=== PATIENT | male | born 1975 | race Caucasian/White ===

== ENCOUNTER 2019-03-25 17:19 | Emergency (ER) | payer MEDICAID ==
[~2019-03-25] VITALS: Ht 182.9 cm; Wt 81.6 kg
[~2019-03-25 17:19] MED LIST: METH10TA2 PO; OXYC30TA2
[2019-03-25 17:45] VITALS: BP 100/52
--- NOTE | 2019-03-25 18:26 | NUR ---
Patient discharged to home in stable condition. Written and verbal after care instructions given. Patient verbalizes understanding of instruction AND RX. PT STATED THAT HE WAS HOMELESS AND LIVED IN HIS CAR. PT REC'D HOMELESS RESOURCE PACKAGE, FOOD, AND JUICE. PT AMBULATED OUT WITH A STEADY GAIT. VSS. NAD NOTED.
== END 2019-03-25 18:29 | disposition home or self-care (01) ==
LOC: ER 17:19
DX: L03.114 Cellulitis of left upper limb (principal); F17.210 Nicotine dependence, cigarettes, uncomplicated; Z59.0 Homelessness; Z79.899 Other long term (current) drug therapy

== ENCOUNTER 2019-04-19 17:35 | Emergency (ER) | payer MEDICAID ==
[~2019-04-19] VITALS: Ht 182.9 cm; Wt 81.6 kg
[2019-04-19 17:46] VITALS: BP 157/96
[2019-04-19] MEDS ORDERED: HYDROCODONE/APAP 5/325MG 1 EACH TABLET ONE (18:52)
[2019-04-19] MEDS ORDERED: IBUPROFEN 400 MG TABLET ONE (18:52)
[2019-04-19] MEDS ORDERED: IBUPROFEN 400 MG TABLET PO ONE (19:00)
[2019-04-19] MEDS ORDERED: HYDROCODONE/APAP 5/325MG 1 EACH TABLET PO ONE (19:00)
== END 2019-04-19 18:56 | disposition home or self-care (01) ==
LOC: ER 17:38
DX: K08.89 Other specified disorders of teeth and supporting structures (principal); F17.210 Nicotine dependence, cigarettes, uncomplicated; Z59.0 Homelessness

== ENCOUNTER 2021-05-25 07:52 | Emergency (ER) | payer MEDICAID ==
[~2021-05-25] VITALS: Ht 182.9 cm; Wt 90.7 kg
[2021-05-25 08:01] VITALS: BP 138/83
[2021-05-25] MEDS ORDERED: SULF1TAB48 PO (08:05)
--- NOTE | 2021-05-25 08:08 | NUR ---
Patient discharged to home in stable condition. Written and verbal after care instructions given. Patient verbalizes understanding of instruction.
== END 2021-05-25 08:08 | disposition home or self-care (01) ==
LOC: ER 07:55
DX: L03.114 Cellulitis of left upper limb (principal); F17.210 Nicotine dependence, cigarettes, uncomplicated; Z59.0 Homelessness

== ENCOUNTER 2022-04-08 06:00 | Emergency (ER) | payer MEDICAID ==
[~2022-04-08] VITALS: Ht 182.9 cm; Wt 90.7 kg
[~2022-04-08 06:00] MED LIST changes: +SULF1TAB48 PO
[2022-04-08 06:15] VITALS: BP 183/102
[2022-04-08] MEDS ORDERED: SULF1TAB48 PO (06:57)
[2022-04-08] MEDS ORDERED: CEPH500C2 PO (06:57)
== END 2022-04-08 07:02 | disposition home or self-care (01) ==
LOC: ER 06:04
DX: F17.200 Nicotine dependence, unspecified, uncomplicated (principal); Z59.00 Homelessness unspecified; Z79.899 Other long term (current) drug therapy; L02.414 Cutaneous abscess of left upper limb

== ENCOUNTER 2022-09-30 08:03 | Inpatient (IN) | payer MEDICAID ==
[~2022-09-30] VITALS: Ht 182.9 cm; Wt 86.2 kg
[~2022-09-30 08:03] MED LIST changes: +CEPH500C2 PO
--- NOTE | 2022-09-30 08:42 | NUR ---
GIS PROFESSOR AT BEDSIDE FOR XRAY
[2022-09-30 08:48] LABS: BASOPHILS % (AUTO) 0.4 % (0.0-2.0); EOSINOPHILS % (AUTO) 1.3 % (0.0-6.0); HEMATOCRIT 45 % (39-51); HEMOGLOBIN 13.8 g/dL (13.5-17.5); LYMPHOCYTES # (AUTO) 1.6 K/uL (0.8-4.8); LYMPHOCYTES % (AUTO) 13.8 % (20.0-44.0); MEAN CORPUSCULAR HGB CONC 31 g/dl (31.0-36.0); MEAN CORPUSCULAR VOLUME 75 fL (80-96); MONOCYTES # (AUTO) 0.3 K/uL (0.1-1.30); MONOCYTES % (AUTO) 2.5 % (2.0-12.0); NEUTROPHILS # (AUTO) 9.4 K/uL (1.8-8.9); PLATELET COUNT (AUTO) 292 K/uL (150-450); RED BLOOD CELL COUNT(AUTO) 5.98 MIL/uL (4.5-6.0); WHITE BLOOD COUNT (AUTO) 11.5 K/uL (4.3-11.0)
--- NOTE | 2022-09-30 09:00 | NUR ---
URINE SAMPLE COLLECTED AND SENT TO LAB
[2022-09-30 09:11] LABS: CREATINE KINASE, TOTAL 339 U/L (39-308)
[2022-09-30 09:14] LABS: ALANINE AMINOTRANSFERASE 31 U/L (12-78); ALBUMIN 3.7 g/dL (3.4-5.0); ALCOHOL, BLOOD < 3 mg/dL (0-0); ALKALINE PHOSPHATASE 83 U/L (46-116); ASPARTATE AMINOTRANSFERASE 52 U/L (15-37); BILIRUBIN,DIRECT 0.1 mg/dL (0.0-0.2); BILIRUBIN,TOTAL 0.4 mg/dL (0.2-1.0); CALCIUM, SERUM 8.9 mg/dL (8.5-10.1); CARBON DIOXIDE 20 mmol/L (21-32); CHLORIDE 102 mmol/L (98-107); CREATININE 1.8 mg/dL (0.6-1.3); GLUCOSE 187 mg/dL (74-106); POTASSIUM 3.1 mmol/L (3.5-5.1); SODIUM SERUM 138 mmol/L (136-145); TOTAL PROTEIN, SERUM 9.4 g/dL (6.4-8.2); UREA NITROGEN, BLOOD 22 mg/dL (7-18)
--- NOTE | 2022-09-30 09:25 | NUR ---
MOVE SHEET SUBMITTED.
[2022-09-30 09:34] LABS: ACETAMINOPHEN < 10 ug/ml (10-30)
--- NOTE | 2022-09-30 09:35 | NUR ---
COVID SWAB COLLECTED AND SENT TO LAB
[2022-09-30 09:42] LABS: BILIRUBIN,URINE NEGATIVE (NEGATIVE); COLOR,URINE YELLOW (YELLOW); LEUKOCYTE ESTERASE ,URINE NEGATIVE (NEGATIVE); NITRITE, URINE NEGATIVE (NEGATIVE); PROTEIN,URINE 2+ mg/dl (NEGATIVE); UGLUCOSE 2+ mg/dL (NEGATIVE); UROBILINOGEN,URINE 0.2 EU/dL (0.2)
[2022-09-30 09:47] LABS: BACTERIA,URINE Few /HPF (None Seen); SQUAMOUS EPITHELIAL CELL,UR Few /HPF (None Seen)
[2022-09-30] MEDS ORDERED: hydrALAZINE HCL IV 20 MG VIAL IV ONE (10:00)
[2022-09-30] MEDS ORDERED: CEFTRIAXONE 1GM BAG (ER ONLY) 1 GM/50 ML PIGGYBACK IV ONE (10:00)
[2022-09-30] MEDS ORDERED: ENOXAPARIN SODIUM 80 MG/0.8 ML DISP.SYRIN SQ ONE (10:00)
[2022-09-30] MEDS ORDERED: hydrALAZINE HCL IV 20 MG VIAL ONE (10:02)
[2022-09-30] MEDS ORDERED: ENOXAPARIN SODIUM 100 MG/ML DISP.SYRIN SQ ONE (10:03)
--- NOTE | 2022-09-30 10:41 | NUR ---
[facility] CALLED INSTRUCTOR DRAMATIC ARTS PAGED.
[2022-09-30] MEDS ORDERED: HYDR50TA4 PO (10:48)
[2022-09-30] MEDS ORDERED: AMLO-213 PO (10:48)
--- NOTE | 2022-09-30 11:43 | NUR ---
[facility] CALLED SIGN MAINTENANCE PAGED.
--- NOTE | 2022-09-30 11:45 | NUR ---
KAIA LEWIS CALLED FOR MIDLINE
--- NOTE | 2022-09-30 12:07 | NUR ---
MIDLINE NURSE AT BEDSIDE FOR MIDLINE INSERTION
--- NOTE | 2022-09-30 12:22 | NUR ---
BED 320
--- NOTE | 2022-09-30 12:40 | NUR ---
PT REPORT GIVEN TO JEFFREY GARCIA
--- NOTE | 2022-09-30 13:23 | NUR ---
PT TRANSFERRED TO 320-1 VIA [facility] ACLS PROTOCOL. WARM HAND OFF GIVEN TO RN ASSIGNED.
--- NOTE | 2022-09-30 13:23 | NUR ---
DR MAGAÑA AT BEDSIDE W/ PT
--- NOTE | 2022-09-30 14:00 | NUR ---
MANAGER ETHICS ADMITTING NOTES PATIENT ARRIVED TO UNIT FROM ER, CURRENTLY LAYING IN BED, A/O X 3, ABLE TO MAKE NEEDS KNOWN, TOLERATING WELL ON 2 LPM O2 VIA NASAL CANNULA. NO COMPLAINTS OF PAIN OR DISCOMFORT AT THIS TIME. SHANTEL MIDLINE # 18 SL AND L FA # 22 SL CLEAN, INTACT AND FLUSHING WELL. TELE MONITOR IN PLACE READING SR 82. SAFETY MEASURES IN PLACE: BED IN LOWEST LOCKED POSITION, SIDE RAILS UP X 2, CALL LIGHT WITHIN REACH. WILL CONTINUE TO MONITOR.
[2022-09-30] MEDS ORDERED: POTASSIUM CHLORIDE 20 MEQ TAB.PRT.SR PO SCH (14:30)
[2022-09-30] MEDS ORDERED: FUROSEMIDE 100 MG/10 ML VIAL IV ONE (15:30)
[2022-09-30] MEDS ORDERED: ACETAMINOPHEN 325 MG TABLET PO PRN (15:30)
[2022-09-30] MEDS ORDERED: ONDANSETRON HCL/PF 4 MG/2 ML VIAL IVP PRN (15:30)
[2022-09-30] MEDS ORDERED: Z GUARD REMEDY 4 OZ OINT TP PRN (15:30)
[2022-09-30] MEDS ORDERED: ENOXAPARIN SODIUM 40 MG/0.4 ML DISP.SYRIN SQ SCH (16:00)
--- NOTE | 2022-09-30 18:23 | NUR ---
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 MD MADE AWARE. PATIENT STATED HE RECEIVES METHADONE FOR PREVENTION OF WITHDRAWAL SYMPTOMS FROM THE FOLLOWING CLINIC: [facility] AT [address], [address], [place], [address] . THE IS CURRENTLY CLOSED AND OPENS AGAIN 10/01 AT 8:30 AM. CHIP SILO TENDER STATED FACILITY MUST BE CALLED AGAIN IN MORNING IN ORDER TO FAX METHADONE PRESCRIPTION TO HOSPITAL. WILL ENDORSE TO CATECHIST FOR APOORVA.
--- NOTE | 2022-09-30 19:00 | NUR ---
DIRECTOR OF STRATEGIC PARTNERSHIPS CLOSING NOTES PATIENT LAYING IN BED, A/O X 3, ABLE TO MAKE NEEDS KNOWN, TOLERATING WELL ON 2 LPM O2 VIA CANNULA. NO S/S PAIN OR DISCOMFORT AT THIS TIME. SHANTEL # 18 MIDLINE AND L FA # 22 SL CLEAN, INTACT, AND FLUSHING WELL. TELE MONITOR IN PLACE READING SR 82. SAFETY MEASURES IN PLACE: BED IN LOWEST LOCKED POSITION, SIDE RAILS UP X 2, CALL LIGHT WITHIN REACH. ALL NEEDS MET. WILL ENDORSE TO SEWER AND INSPECTOR FOR APOORVA.
[2022-09-30] MEDS ORDERED: LORAZEPAM ORAL SOLN 2 MG/ML ORAL.CONC PO PRN (19:30)
--- NOTE | 2022-09-30 19:45 | NUR ---
CAUSTIC STRENGTH INSPECTOR OPENING NOTE PATIENT SLEEPING IN BED, EASILY AWAKENED, PATIENT ALERT/ORIENTED X 2-3, PT LETHARGIC. PATIENT STABLE ON RA, NO S/S OF DISTRESS OR SOB NOTED, BREATHING EVEN AND UNLABORED, SPO2: 99%. PATIENT ON EXTERNAL RN HOUSE SUPERVISOR READING SINUS RHYTHM WITH ST DEPRESSION, HR: 76. IV ACCESS ON LFA #22G AND SHANTEL MIDLINE INTACT AND SALINE LOCKED. PATIENT DENIES PAIN OR DISCOMFORT AT THIS TIME. SAFETY MEASURES IN PLACE: CALL LIGHT WITHIN REACH, SIDE RAILS UP X 2, BED LOCKED IN LOWEST POSITION, HOB ELEVATED, BED ALARM ON. WILL CONTINUE TO MONITOR PATIENT
[2022-09-30 20:00] VITALS: BP 159/111
[2022-10-01] VITALS: BP 151/100
--- NOTE | 2022-10-01 01:00 | NUR ---
FIRE SPRINKLER APPARATUS INSPECTOR NOTE PATIENT'S BP 151/100, HR: 86. PATIENT HAS NO PRN BP MEDS. CONTACTED SUPERVISOR LEAD BURNING MD MARY DEGROOT, NO NEW ORDERS AT THIS TIME. WILL CONTINUE TO MONITOR
[2022-10-01 04:00] VITALS: BP 187/98
[2022-10-01] MEDS ORDERED: NITROGLYCERIN PACKET 1 GM PACKET TOP SCH (04:30)
--- NOTE | 2022-10-01 04:30 | NUR ---
HOUSEHOLD APPLIANCE MECHANIC NOTE PATIENT BP 187/98, HR: 77. NOTIFIED OUTBOARD MOTOR MECHANIC MD MARY DEGROOT WHO IS PRESENT ON UNIT, PUT IN ORDER FOR TOPICAL NITRO 1 GM. MEDICATION GIVEN ORDERED
[2022-10-01 04:44] VITALS: BP 187/98
--- NOTE | 2022-10-01 05:46 | NUR ---
BIKE ASSEMBLER NOTE PATIENT VERY ANXIOUS AND RESTLESS, STATES WITHDRAWAL SYMPTOMS ARE VERY BAD RIGHT NOW. PATIENT HAS ORDER FOR ATIVAN 2 MG ORAL SOLUTION HOWEVER THAT IS NOT AVAILABLE IN [facility]. CONTACTED BINDER TECHNICIAN MD MARY DEGROOT WHO PUT IN ORDER FOR MORPHINE 2 MG IV X 1 TIME. MEDICATION GIVEN
[2022-10-01] MEDS ORDERED: MORPHINE SULFATE INJ 2 MG/ML DISP.SYRIN IV ONE (06:00)
[2022-10-01 06:05] LABS: BASOPHILS % (AUTO) 0.4 % (0.0-2.0); EOSINOPHILS % (AUTO) 1.4 % (0.0-6.0); HEMATOCRIT 37 % (39-51); HEMOGLOBIN 12.1 g/dL (13.5-17.5); LYMPHOCYTES # (AUTO) 2.2 K/uL (0.8-4.8); LYMPHOCYTES % (AUTO) 21.4 % (20.0-44.0); MEAN CORPUSCULAR HGB CONC 32 g/dl (31.0-36.0); MEAN CORPUSCULAR VOLUME 73 fL (80-96); MONOCYTES # (AUTO) 0.7 K/uL (0.1-1.30); MONOCYTES % (AUTO) 6.6 % (2.0-12.0); NEUTROPHILS # (AUTO) 7.3 K/uL (1.8-8.9); NEUTROPHILS % (AUTO) 70.2 % (43.0-81.0); PLATELET COUNT (AUTO) 306 K/uL (150-450); RED BLOOD CELL COUNT(AUTO) 5.13 MIL/uL (4.5-6.0); WHITE BLOOD COUNT (AUTO) 10.4 K/uL (4.3-11.0)
--- NOTE | 2022-10-01 06:20 | NUR ---
SANITATION INSPECTOR CLOSING NOTE PATIENT SLEEPING IN BED, EASILY AWAKENED, PATIENT ALERT/ORIENTED X 2-3. PATIENT STABLE ON RA, NO S/S OF DISTRESS OR SOB NOTED, BREATHING EVEN AND UNLABORED. PATIENT ON EXTERNAL DRY CELL TESTER READING SINUS RHYTHM, HR: 81. IV ACCESS ON LFA #22G AND SHANTEL MIDLINE INTACT AND SALINE LOCKED. PATIENT WAS SLEEPING MOST OF SHIFT, MEDICATIONS GIVEN ORDERED, PT NEEDS MET THROUGHOUT SHIFT. PATIENT REFUSED LINEN CHANGE AND TO WEAR A HOSPITAL GOWN. PATIENT MORE CALM AND LESS ANXIOUS AFTER MORPHINE 2 MG IV. SAFETY MEASURES IN PLACE: CALL LIGHT WITHIN REACH, SIDE RAILS UP X 2, BED LOCKED IN LOWEST POSITION, HOB ELEVATED. WILL ENDORSE TO DAYSHIFT RN FOR CONTINUITY OF CARE
[2022-10-01 06:38] LABS: ALBUMIN 3.2 g/dL (3.4-5.0); BILIRUBIN,TOTAL 0.5 mg/dL (0.2-1.0); CALCIUM, SERUM 8.3 mg/dL (8.5-10.1); CREATININE 1.7 mg/dL (0.6-1.3); MAGNESIUM 2.3 mg/dL (1.8-2.4); PHOSPHORUS 4.2 mg/dL (2.5-4.9); POTASSIUM 3.6 mmol/L (3.5-5.1); THYROID STIMULATING HORMONE 0.695 uIU/mL (0.358-3.74); TOTAL PROTEIN, SERUM 8.1 g/dL (6.4-8.2)
[2022-10-01] MEDS ORDERED: PANTOPRAZOLE 40 MG TABLET.DR PO SCH (07:30)
[2022-10-01] MEDS ORDERED: METH10TA2 PO (07:53)
--- NOTE | 2022-10-01 08:01 | NUR ---
RN OPENING NOTE RECEIVED PATIENT IN BED, AO X 2-3. ABLE TO RESPONDS ALL PHYSICAL STIMULI. RESPIRATORY EVEN AND UNLABORED IN ROOM AIR. IN NO ACUTE DISTRESS OBSERVED. SKIN IS WARM TO TOUCH, KEEP CLEAN/DRY. KEPT ELEVATED HOB FOR ASPIRATION PRECAUTION/ENSURE AIRWAY, AND LOWEST BED POSITIONED. BED ALARM IS ON AT ALL THE TIME FOR SAFETY. CALL LIGHT WITHIN REACH, WILL CONTINUE TO MONITOR.
[2022-10-01] MEDS ORDERED: LORAZEPAM 1 MG TABLET PO PRN (08:30)
--- NOTE | 2022-10-01 08:30 | NUR ---
METAL MIXER/MAHAD RECON CALLED AND SPOKE WITH CHARLIE FROM [facility] ([facility] PER CHARLIE, PATIENT WAS LAST SEEN IN THE CLINIC BACK IN 2013. MOHSEN PAYNE MADE AWARE.
--- NOTE | 2022-10-01 08:30 | NUR ---
PATIENT [id number] SIGNED AMA AND LEFT FACILITY ESCORTED BY SECURITY X 2 PERSON. PATIENT IS UNDERSTANDING THE RISK AND CONSEQUENCES INVOLVED IN LEAVING THE HOSPITAL AT THIS TIME. REFUSED TAKE A VITAL SIGN IN THIS MORNING. REMOVED IV LINE BEFORE PATIENT LEAVE THE FACILITY, NOTIFIED. INCIDENT REPORT IS DONE.
[2022-10-01] MEDS ORDERED: ASPIRIN EC 81 MG TABLET.DR PO SCH (09:00)
[2022-10-01] MEDS ORDERED: HYDROCHLOROTHIAZIDE 25 MG TABLET PO SCH (09:00)
[2022-10-01] MEDS ORDERED: HYDROCHLOROTHIAZIDE 50 MG TABLET PO SCH (09:00)
[2022-10-01] MEDS ORDERED: AMLODIPINE BESYLATE 10 MG TABLET PO SCH (09:00)
[2022-10-01] MEDS ORDERED: ENOXAPARIN SODIUM 40 MG/0.4 ML DISP.SYRIN SQ SCH (10:00)
== END 2022-10-01 08:45 | disposition left against medical advice (07) | DRG 816 ==
LOC: ER 08:05 → TELE 13:45
PROVIDERS: ADMIT Nurse Practitioner Acute Care; ATTEND Nurse Practitioner Acute Care
PROC: 05H933Z Insertion of Infusion Device into Right Brachial Vein, Percutaneous Approach (ICD-10-PCS; principal; 2022-09-30)
DX: T40.1X1A Poisoning by heroin, accidental (unintentional), initial encounter (principal); N17.0 Acute kidney failure with tubular necrosis; I21.4 Non-ST elevation (NSTEMI) myocardial infarction; I50.31 Acute diastolic (congestive) heart failure; I11.0 Hypertensive heart disease with heart failure; Y92.481 Parking lot as the place of occurrence of the external cause; R68.0 Hypothermia, not associated with low environmental temperature; E87.6 Hypokalemia; F11.10 Opioid abuse, uncomplicated; E87.1 Hypo-osmolality and hyponatremia; Z20.822 Contact with and (suspected) exposure to COVID-19; F17.210 Nicotine dependence, cigarettes, uncomplicated
CPT/HCPCS: 36415; 71045-TC; 80048-TC; 80053-TC; 80061-TC; 80076-TC; 81001; 82550-TC; 82553; 83735-TC; 83880; 84100-TC; 84443-TC; 84484-TC; 85025-TC; 87081-TC; 87086-TC; 93307-TC; C9803; G0378; G0480; J0360; J1650; J1940; J2270